=== PATIENT | male | born 2000 | race Caucasian/White ===

== ENCOUNTER 2020-07-19 06:11 | Emergency (ER) | payer BC ==
[~2020-07-19] VITALS: Ht 175.3 cm; Wt 72.7 kg
[2020-07-19 06:29] VITALS: BP 138/78; PULSE 89; TEMP 98.7
[2020-07-19 07:18] LABS: CALCIUM 10.3 mg/dL (8.4-10.2); CREATININE, serum 0.87 (0.66-1.25); POTASSIUM 4.3 mmol/L (3.4-5.0)
[2020-07-19] MEDS ORDERED: ZOFRAN ODT4 MG PO (07:46)
[2020-07-19 07:49] LABS: TSH w REFLEX 0.623 uIU/mL (0.465-4.680)
== END 2020-07-19 08:13 | disposition home or self-care (01) ==
LOC: COL.ER 06:11
PROVIDERS: Emergency Medicine
DX: F41.0 Panic disorder [episodic paroxysmal anxiety] (principal); R11.2 Nausea with vomiting, unspecified; R07.89 Other chest pain; F17.210 Nicotine dependence, cigarettes, uncomplicated; Z88.1 Allergy status to other antibiotic agents
CPT/HCPCS: J3360

== ENCOUNTER 2020-08-09 13:13 | Emergency (ER) | payer BC ==
[~2020-08-09] VITALS: Ht 177.8 cm; Wt 72.7 kg
[~2020-08-09 13:13] MED LIST: ZOFRAN ODT4 MG PO
[2020-08-09 13:17] VITALS: TEMP 97.6
[2020-08-09] MEDS ORDERED: KLONOPIN 0.5MG0.5 MG PO ×2 (16:37→16:38)
[2020-08-09 17:00] VITALS: BP 142/81; PULSE 91
== END 2020-08-09 17:00 | disposition home or self-care (01) ==
LOC: COL.ER 13:13
DX: F41.9 Anxiety disorder, unspecified (principal); Z88.1 Allergy status to other antibiotic agents
CPT/HCPCS: J1630; J2060

== ENCOUNTER 2020-08-10 15:24 | Emergency (ER) | payer BC ==
[~2020-08-10] VITALS: Ht 175.3 cm; Wt 72.7 kg
[~2020-08-10 15:24] MED LIST changes: +KLONOPIN 0.5MG0.5 MG PO
[2020-08-10 18:10] VITALS: BP 128/64; PULSE 68; TEMP 97.6
== END 2020-08-10 18:12 | disposition home or self-care (01) ==
LOC: COL.ER 15:24
DX: F41.9 Anxiety disorder, unspecified (principal); R11.2 Nausea with vomiting, unspecified; R07.89 Other chest pain; Z88.1 Allergy status to other antibiotic agents

== ENCOUNTER 2020-08-10 22:51 | Emergency (ER) | payer BC ==
[~2020-08-10] VITALS: Ht 175.3 cm; Wt 2.5 kg
[2020-08-10 22:58] VITALS: TEMP 97.8
[2020-08-10 23:23] VITALS: BP 153/75
[2020-08-11 00:19] LABS: BASO % 0.2 % (0.0-2.0); EOS % 0.1 % (0-4.0); GRAN # 8.4 (1.4-6.5); GRAN % 84.1 % (42.2-75.2); HEMATOCRIT 46.5 % (42.0-52.0); HEMOGLOBIN 16.2 g/dl (13.5-18.0); LYMPH % 10.2 % (20.0-51.0); MEAN CELL VOLUME 83 fl (80.0-100.0); MEAN CORPUSCULAR HEMOGLOBIN 29 pg (27.0-31.0); MEAN CORPUSCULAR HGB CONC 35 g/dl (33.0-37.0); MEAN PLATELET VOLUME 9.5 fl (7.4-10.4); MONO # 0.5 (0.1-0.6); MONO % 5.2 % (1.7-9.3); PLATELET COUNT 354 K/mm3 (130-400); RED BLOOD COUNT 5.58 M/mm3 (4.20-5.60); REDCELL DISTRIBUTION WIDTH-CV 12.1 % (11.5-14.5)
[2020-08-11 00:34] LABS: ALANINE AMINOTRANSFERASE 20 U/L (4-49); ALKALINE PHOSPHATASE 63 U/L (50-136); ANION GAP 14 mmol/L (7-16); AST,SGOT 40 U/L (15-37); BILIRUBIN,TOTAL 0.8 mg/dL (0.0-1.0); BLOOD UREA NITROGEN 11 mg/dL (9-20); CALCIUM 9.9 mg/dL (8.4-10.2); CARBON DIOXIDE 26 mmol/L (22-30); CHLORIDE 100 mmol/L (98-107); CREATININE, serum 0.69 (0.66-1.25); GLUCOSE 113 mg/dL (74-106); POTASSIUM 3.5 mmol/L (3.4-5.0); SODIUM 139 mmol/L (137-145)
[2020-08-11 00:47] LABS: TROPONIN-I < 0.012 ng/mL (0.000-0.035)
[2020-08-11 01:15] VITALS: PULSE 70
== END 2020-08-11 01:17 | disposition home or self-care (01) ==
LOC: COL.ER 22:51
PROVIDERS: Nurse Practitioner Primary Care
DX: F41.9 Anxiety disorder, unspecified (principal); R11.2 Nausea with vomiting, unspecified; F17.200 Nicotine dependence, unspecified, uncomplicated; Z88.1 Allergy status to other antibiotic agents
CPT/HCPCS: J1200; J1630; J2405

== ENCOUNTER 2021-05-15 14:35 | Emergency (ER) | payer BC | END 2021-05-15 14:40 | disposition left against medical advice (07) | LOC: COL.ER 14:35 | DX: Z04.6 Encounter for general psychiatric examination, requested by authority (principal) ==